=== PATIENT | male | born 1960 | race Two or more races ===

== ENCOUNTER 2020-12-17 20:41 | Emergency (ER) | payer MEDICAID ==
[~2020-12-17] VITALS: Ht 165.1 cm; Wt 81.6 kg
[~2020-12-17 20:41] MED LIST: SIMV-46 PO
--- NOTE | 2020-12-17 20:50 | NUR ---
Patient was mse by Dr Gomez in room 03A
[2020-12-17] MEDS ORDERED: HYDR-500 GT (21:05)
--- NOTE | 2020-12-17 21:09 | NUR ---
Patient discharged to home in stable condition. Written and verbal after care instructions given. Patient verbalizes understanding of instructions. Stressed follow up or return to ER for worsening s/s.
[2020-12-17 21:11] VITALS: BP 148/89
== END 2020-12-17 21:11 | disposition home or self-care (01) ==
LOC: ER 20:42
DX: L50.9 Urticaria, unspecified (principal); I10 Essential (primary) hypertension; E78.00 Pure hypercholesterolemia, unspecified; Z87.891 Personal history of nicotine dependence; Z79.899 Other long term (current) drug therapy; E66.9 Obesity, unspecified; Z68.30 Body mass index [BMI] 30.0-30.9, adult
CPT/HCPCS: A4663

== ENCOUNTER 2021-01-15 19:14 | Emergency (ER) | payer MEDICAID ==
[~2021-01-15] VITALS: Ht 165.1 cm; Wt 72.6 kg
[~2021-01-15 19:14] MED LIST changes: +HYDR-500 GT
[2021-01-15] MEDS ORDERED: predniSONE 20 MG TABLET PO ONE (20:15)
[2021-01-15] MEDS ORDERED: LORATADINE 10 MG TABLET PO SCH (20:15)
[2021-01-15] MEDS ORDERED: DIPH25CA83 PO (20:19)
[2021-01-15] MEDS ORDERED: LORA10TA7 PO (20:19)
[2021-01-15] MEDS ORDERED: PRED20TA PO (20:19)
[2021-01-15 20:26] VITALS: BP 138/72
[2021-01-15] MEDS ORDERED: predniSONE 10 MG TABLET ONE (20:29)
[2021-01-15] MEDS ORDERED: predniSONE 50 MG TABLET ONE (20:29)
[2021-01-15] MEDS ORDERED: LORATADINE 10 MG TABLET ONE (20:29)
== END 2021-01-15 20:28 | disposition home or self-care (01) ==
LOC: ER 19:15
DX: L50.9 Urticaria, unspecified (principal); E78.00 Pure hypercholesterolemia, unspecified; I10 Essential (primary) hypertension; Z87.891 Personal history of nicotine dependence
CPT/HCPCS: 99283; J7512 ×2; A4663

== ENCOUNTER 2021-02-12 23:45 | Emergency (ER) | payer MEDICAID ==
[~2021-02-12] VITALS: Ht 165.1 cm; Wt 79.4 kg
[~2021-02-12 23:45] MED LIST changes: +DIPH25CA83 PO; +LORA10TA7 PO; +PRED20TA PO
--- NOTE | 2021-02-12 23:55 | NUR ---
Pt braugh back to room ED2A via ambulation by assistant engineer Phil. Pt dressed into gown, placed on bedside monitor, initial VSS, PE WNL, EDMD at bedside for eval and PE. Verbal orders given for IV fluids 1L NS, EKG and some IV and IM meds. Orders acknowledged.
[2021-02-13] MEDS ORDERED: EPINEPHRINE-PF 1:1000 1 MG/ML AMPUL MC ONE (00:15)
[2021-02-13] MEDS ORDERED: diphenhydrAMINE 50 MG/1 ML VIAL IV ONE (00:15)
[2021-02-13] MEDS ORDERED: IV NORMAL SALINE 100 ML BAG IV ONE (00:15)
[2021-02-13] MEDS ORDERED: FAMOTIDINE. 20 MG/2 ML VIAL IV ONE ×2 (00:15→00:29)
[2021-02-13] MEDS ORDERED: methylPREDNISolone SOD SUCC 125 MG/2 ML VIAL IV ONE (00:15)
--- NOTE | 2021-02-13 00:15 | NUR ---
PCXR taken and EKG performed without difficulty.
[2021-02-13] MEDS ORDERED: diphenhydrAMINE 50 MG/1 ML VIAL ONE (00:29)
[2021-02-13] MEDS ORDERED: methylPREDNISolone SOD SUCC 125 MG/2 ML VIAL ONE (00:30)
[2021-02-13] MEDS ORDERED: hydrOXYzine HCL 25 MG TABLET PO ONE (00:30)
[2021-02-13] MEDS ORDERED: EPIN0.3A4 IM (00:31)
[2021-02-13] MEDS ORDERED: EPINEPHRINE 1 MG/1 ML AMP ONE (00:31)
[2021-02-13] MEDS ORDERED: PRED20TA PO (00:32)
[2021-02-13] MEDS ORDERED: HYDR-500 GT (00:32)
[2021-02-13 00:36] LABS: HEMATOCRIT 47.1 % (36.7-47.1); MEAN CORPUSCULAR HEMOGLOBIN 31.3 uug (23.8-33.4); PLATELET COUNT (AUTO) 324 K/uL (152-348)
[2021-02-13 00:37] LABS: CREATININE 1.3 mg/dL (0.6-1.3); POTASSIUM 3.7 mmol/L (3.5-5.1)
[2021-02-13 00:42] LABS: BILIRUBIN,TOTAL 1.1 mg/dL (0.2-1.0); TOTAL PROTEIN, SERUM 7.2 g/dL (6.4-8.2)
[2021-02-13] MEDS ORDERED: hydrOXYzine HCL 25 MG TABLET ONE (01:30)
--- NOTE | 2021-02-13 01:36 | NUR ---
Pt resting comfortably on gurney with banket and pillow, light turned off to help pt rest. Awaitng lab results and EDMD analysis.
--- NOTE | 2021-02-13 02:00 | NUR ---
Pt resting comfortably and dozeing off to sleep with audible snoring. VSS, NSR without ectopy, 117/75, 84 bpm, 96% SaO2, 16rpm. EDMD waiting on pt's symptoms to subside before DCing him home, at least 4 to 4.5 hours after time of med administration.
--- NOTE | 2021-02-13 04:00 | NUR ---
EDMD at pt bedside to eval condition of pt and assess improvement of pt condition and effectiveness of treatment. Pt has marked improvement in the swelling of bottom lip and states that he feels much better from arrival. Pt also sounds much less hoarse now compared to how he presented to the ED. VSS, PE WNL, lungs clear. RRR without m/g/r
--- NOTE | 2021-02-13 04:19 | NUR ---
Pt given DC instructions and medication info for prescribed meds. Pt told that if he has any further info, the pharmacist would be able to answer them upon dispensing prescription. Final vitals were WNL, 118/75, 96% SaO2, 82bpm. Pt denies any pain, nausea, dizziness or discomfort. PE wnl, Lungs clear bilat, RRR without m/r/g normal s1s2. Pt has good color, temp and appearance with marked improvement in welts, rashes and swollen lower lip. No s/sx of distress present. Pt Dced home via ambulation. Pt's gait steady. Pt very appreciative and thankful of services provided.
[2021-02-13 05:32] VITALS: BP 118/75
== END 2021-02-13 04:19 | disposition home or self-care (01) ==
LOC: ER 23:50
DX: T78.2XXA Anaphylactic shock, unspecified, initial encounter (principal); L50.0 Allergic urticaria; I10 Essential (primary) hypertension; Z87.891 Personal history of nicotine dependence; E78.00 Pure hypercholesterolemia, unspecified; Z79.899 Other long term (current) drug therapy; R94.31 Abnormal electrocardiogram [ECG] [EKG]
CPT/HCPCS: 36415; 71045; 80053; 85025; 93005; 96372; 96374; 96375; 99291; J0171; J1200; J2930; J3490; A4663; J7030

== ENCOUNTER 2021-03-15 15:00 | Emergency (ER) | payer MEDICAID ==
[~2021-03-15] VITALS: Ht 162.6 cm; Wt 93.0 kg
[~2021-03-15 15:00] MED LIST changes: +EPIN0.3A4 IM
--- NOTE | 2021-03-15 15:18 | NUR ---
[email or web address], medical screening exam in progress
[2021-03-15] MEDS ORDERED: FAMO-132 PO (15:24)
[2021-03-15] MEDS ORDERED: METH4TAB3 PO (15:24)
[2021-03-15] MEDS ORDERED: HYDR-501 PO (15:24)
[2021-03-15] MEDS ORDERED: FAMOTIDINE 20 MG TABLET PO ONE (15:30)
[2021-03-15] MEDS ORDERED: DEXAMETHASONE SOD PHOSPHATE 4 MG INJ IM ONE (15:30)
[2021-03-15] MEDS ORDERED: FAMOTIDINE 20 MG TABLET ONE (15:35)
[2021-03-15] MEDS ORDERED: DEXAMETHASONE SOD PHOSPHATE 10 MG INJ ONE (15:35)
--- NOTE | 2021-03-15 15:39 | NUR ---
Patient discharged to home in stable condition with brisk steady gait. Written and verbal after care instructions given to patient. Patient verbalized understanding and compliance of instructions. Stressed follow up with his primary doctor and allergologist/casting coordinator as scheduled or return to ER for worsening s/s.
== END 2021-03-15 15:45 | disposition home or self-care (01) ==
LOC: ER 15:00
DX: L50.9 Urticaria, unspecified (principal); E78.00 Pure hypercholesterolemia, unspecified; I10 Essential (primary) hypertension; Z87.891 Personal history of nicotine dependence
CPT/HCPCS: 96372; 99283; J1100; A4663

== ENCOUNTER 2021-06-02 16:52 | Emergency (ER) | payer MEDICAID ==
[~2021-06-02] VITALS: Ht 165.1 cm; Wt 72.6 kg
[~2021-06-02 16:52] MED LIST changes: +FAMO-132 PO; +HYDR-501 PO; +METH4TAB3 PO
[2021-06-02] MEDS ORDERED: ZIPRASIDONE MESYLATE 20 MG VIAL IM ONE (17:22)
[2021-06-02] MEDS ORDERED: predniSONE 20 MG TABLET PO ONE (17:30)
[2021-06-02] MEDS ORDERED: EPIN0.3P3 IM (17:39)
[2021-06-02] MEDS ORDERED: PRED20TA PO (17:39)
[2021-06-02] MEDS ORDERED: HYDR-500 GT (17:42)
[2021-06-02] MEDS ORDERED: predniSONE 50 MG TABLET ONE (17:42)
[2021-06-02] MEDS ORDERED: predniSONE 10 MG TABLET ONE (17:42)
[2021-06-02] MEDS ORDERED: hydrOXYzine HCL 25 MG TABLET ONE (17:43)
[2021-06-02] MEDS ORDERED: hydrOXYzine HCL 25 MG TABLET PO ONE (17:45)
[2021-06-02 17:51] VITALS: BP 122/78
== END 2021-06-02 17:52 | disposition home or self-care (01) ==
LOC: ER 17:09
DX: L50.9 Urticaria, unspecified (principal); Z87.891 Personal history of nicotine dependence; I10 Essential (primary) hypertension; E78.00 Pure hypercholesterolemia, unspecified; Z79.899 Other long term (current) drug therapy
CPT/HCPCS: 99283; J7512 ×2; A4663; J3486

== ENCOUNTER 2021-08-14 22:06 | Emergency (ER) | payer MEDICAID ==
[~2021-08-14] VITALS: Ht 170.2 cm; Wt 68.0 kg
[~2021-08-14 22:06] MED LIST changes: +EPIN0.3P3 IM
--- NOTE | 2021-08-14 22:18 | NUR ---
PT AMBULATED TO ER C/O SKIN RASH AND MED REFILL FOR HYDROXYZINE. PT STATES HE HAS A PUBLIC SERVICE ADMINISTRATOR APPOINTMENT AND IS BEING FOLLOWED BY SPECIALIST IN [facility]. NO SOB OR LABORED BREATHING. AFEBRILE. CLEAR SPEECH, COMPLETE SENTENCES.
--- NOTE | 2021-08-14 22:27 | NUR ---
DR. CHILD AT BEDSIDE, MSE IN PROGRESS.
[2021-08-14] MEDS ORDERED: hydrOXYzine HCL 25 MG TABLET ONE (22:45)
[2021-08-14] MEDS ORDERED: hydrOXYzine HCL 25 MG TABLET PO ONE (22:45)
[2021-08-14] MEDS ORDERED: HYDR-500 PO (22:53)
[2021-08-14] MEDS ORDERED: METH4TAB21 GT (22:56)
[2021-08-14] MEDS ORDERED: DEXAMETHASONE SOD PHOSPHATE 10 MG INJ ONE (22:56)
[2021-08-14] MEDS ORDERED: DEXAMETHASONE SOD PHOSPHATE 4 MG INJ IM ONE (23:00)
[2021-08-14 23:19] VITALS: BP 137/76
--- NOTE | 2021-08-14 23:19 | NUR ---
Patient discharged to home in stable condition. Written and verbal after care instructions given. Patient verbalizes understanding of instructions. Stressed follow up or return to ER for worsening s/s. No SOB or labored breathing, denies any pain/discomfort upon discharge. Steady gait.
== END 2021-08-14 23:25 | disposition home or self-care (01) ==
LOC: ER 22:07
DX: L50.9 Urticaria, unspecified (principal); I10 Essential (primary) hypertension; E78.00 Pure hypercholesterolemia, unspecified; Z87.891 Personal history of nicotine dependence; Z79.899 Other long term (current) drug therapy
CPT/HCPCS: 96372; 99283; J1100; A4663

== ENCOUNTER 2021-09-17 19:18 | Emergency (ER) | payer MEDICAID ==
[~2021-09-17] VITALS: Ht 170.2 cm; Wt 68.0 kg
[~2021-09-17 19:18] MED LIST changes: +HYDR-500 PO; +METH4TAB21 GT
--- NOTE | 2021-09-17 19:50 | NUR ---
Patient is a/ox4, NAD noted. Patient is able to walk with steady gait
[2021-09-17] MEDS ORDERED: PRED20TA PO (19:54)
[2021-09-17] MEDS ORDERED: methylPREDNISolone SOD SUCC 40 MG/ML VIAL IM ONE (20:00)
[2021-09-17] MEDS ORDERED: methylPREDNISolone SOD SUCC 40 MG/ML VIAL ONE (20:01)
--- NOTE | 2021-09-17 20:06 | NUR ---
Patient discharged to home in stable condition. Written and verbal after care instructions given. Patient verbalizes understanding of instructions. Stressed follow up or return to ER for worsening s/s. Patient is a/ox4, NAD noted, able to walk with steady gait. Patient denies SOB.
[2021-09-17 20:12] VITALS: BP 138/76
== END 2021-09-17 20:06 | disposition home or self-care (01) ==
LOC: ER 19:19
DX: T78.3XXA Angioneurotic edema, initial encounter (principal); E78.00 Pure hypercholesterolemia, unspecified; I10 Essential (primary) hypertension; Z87.891 Personal history of nicotine dependence
CPT/HCPCS: 96372; 99283; J2920; A4663

== ENCOUNTER 2021-11-07 18:38 | Emergency (ER) | payer MEDICAID ==
[~2021-11-07] VITALS: Ht 170.2 cm; Wt 68.0 kg
--- NOTE | 2021-11-07 19:00 | NUR ---
Patient is a/ox4, walked to the ER with steady gait. NAD noted.
--- NOTE | 2021-11-07 19:02 | NUR ---
Dr Serna in room MSE in progress
[2021-11-07] MEDS ORDERED: HYDR-500 GT (19:09)
[2021-11-07] MEDS ORDERED: hydrOXYzine HCL 25 MG TABLET ONE (19:12)
[2021-11-07] MEDS ORDERED: hydrOXYzine HCL 25 MG TABLET PO ONE (19:15)
--- NOTE | 2021-11-07 19:16 | NUR ---
Patient discharged to home in stable condition. Written and verbal after care instructions given. Patient verbalizes understanding of instructions. Stressed follow up or return to ER for worsening s/s. Patient is a/ox4, NAD noted. Patient is able to walk with steady gait
[2021-11-07 19:17] VITALS: BP 125/74
== END 2021-11-07 19:16 | disposition home or self-care (01) ==
LOC: ER 18:40
DX: R21 Rash and other nonspecific skin eruption (principal); Z87.891 Personal history of nicotine dependence; Z86.79 Personal history of other diseases of the circulatory system
CPT/HCPCS: A4663

== ENCOUNTER 2022-02-11 20:45 | Emergency (ER) | payer MEDICAID ==
[~2022-02-11] VITALS: Ht 170.2 cm; Wt 72.6 kg
--- NOTE | 2022-02-11 21:10 | NUR ---
Patient walked into ER with a steady gait. NAD noted. A/O x4.
--- NOTE | 2022-02-11 21:25 | NUR ---
Dr. Leija at bedside. MSE in progress.
[2022-02-11] MEDS ORDERED: hydrOXYzine HCL 25 MG TABLET PO ONE (21:45)
[2022-02-11] MEDS ORDERED: hydrOXYzine HCL 25 MG TABLET ONE (22:00)
[2022-02-11] MEDS ORDERED: HYDR-501 PO (22:05)
--- NOTE | 2022-02-11 22:07 | NUR ---
Patient discharged to home in stable condition. A/O x4. NAD noted. Ambulatory with a steady gait. Written and verbal after care instructions given. Patient verbalizes understanding of instructions. Stressed follow up or return to ER for worsening s/s. All belongings with patient.
[2022-02-11 22:09] VITALS: BP 150/89
== END 2022-02-11 22:07 | disposition home or self-care (01) ==
LOC: ER 20:47
DX: L50.9 Urticaria, unspecified (principal); Z87.891 Personal history of nicotine dependence; I10 Essential (primary) hypertension; E78.00 Pure hypercholesterolemia, unspecified; Z79.899 Other long term (current) drug therapy
CPT/HCPCS: A4663